=== PATIENT | female | born 1995 | race Caucasian/White ===

== ENCOUNTER 2017-01-06 21:12 | Emergency (ER) | payer OTHER ==
[2017-01-06] MEDS ORDERED: IOPAMIDOL 370 (76%) 100 ML VIAL IV ONE (21:13)
[2017-01-06] MEDS ORDERED: ONDANSETRON 4 MG/2ML 2 ML VIAL ONE (22:57)
[2017-01-06 23:20] LABS: ABSOLUTE NEUTROPHIL COUNT 1.9 K/mm3 (1.8-7.7); BASO # 0.1 K/mm3 (0.0-0.2); BASO % 0.7 % (0.2-1.0); EOS # 0.1 (0.0-0.5); EOS % 0.8 % (0.9-2.9); HEMATOCRIT 36.4 % (37.0-47.0); IMM NEUT% 0.5 % (0-1); LYMPH # 5.8 (1.0-4.8); LYMPH % 68.2 % (15-45); MEAN CELL VOLUME 90.5 fl (81.0-99.0); MEAN CORPUSCULAR HEMOGLOBIN 29.9 pg (27.0-31.0); MEAN PLATELET VOLUME 10.2 fl (7.4-10.4); MONO # 0.6 (0.0-0.8); MONO % 7.3 % (4-12); NEUT % 22.5 % (43-75); PLATELET COUNT 225 K/mm3 (130-400)
[2017-01-06 23:36] LABS: BLOOD UREA NITROGEN 9 mg/dL (7-25); BUN/CREATININE RATIO 13 (6-20); CALCIUM 9.7 mg/dL (8.6-10.3); LIPASE 14 U/L (11-82)
[2017-01-06 23:41] LABS: ALT/SGPT 156 U/L (7-52)
[2017-01-06 23:55] LABS: ATYPICAL LYMPHOCYTE 27 %; BAND 2 % (0-10); BASOPHIL 0 % (0-1); EOSINOPHIL 1 % (1-3); LYMPHOCYTE 42 % (15-45); MONOCYTE 8 % (4-12); NEUTROPHILS 20 % (43-75); TOTAL CELLS COUNTED 100
[2017-01-06 23:56] LABS: PLATELET ESTIMATE NORMAL (NORMAL)
[2017-01-07 00:54] LABS: SPECIFIC GRAVITY 1.015 (1.001-1.030); URINE BILIRUBIN NEGATIVE (NEGATIVE); URINE BLOOD NEGATIVE (NEGATIVE); URINE GLUCOSE (UA) NEGATIVE (NEGATIVE); URINE LEUKOCYTE ESTERASE NEGATIVE (NEGATIVE); URINE NITRITE NEGATIVE (NEGATIVE); URINE PROTEIN NEGATIVE (NEGATIVE); URINE UROBILINOGEN NORMAL (0-1 mg/dl)
[2017-01-07 00:55] LABS: URINE APPEARANCE HAZY; URINE COLOR YELLOW
[2017-01-07] MEDS ORDERED: OXYCODONE HCL 5 MG TABLET ONE (01:05)
--- NOTE | 2017-01-07 07:45 | CT ---
ABD/PELVIS W/ CON COMPARISON: None. HISTORY: Upper abdomen pain for 2 days. Recently diagnosed with mononucleosis. Technique: No oral contrast. Intravenous injection 100 mL Isovue 370. Using a [employer] Lumens Aquilion [address] scanner, images were obtained from the diaphragm to the floor the pelvis. An automated dose reduction technique was used to minimize patient radiation dose. Dose information: CTDIvol (mGy): 8.10 DLP(mGycm): 432.70 FINDINGS: Lung bases: Normal. Inferior mediastinum and heart: Normal. Liver: Normal. Gallbladder:Normal. Bile ducts: Normal. Pancreas: Normal. Spleen: Mild splenomegaly. Adrenal glands: Normal. Kidneys: Normal. Ureters: Normal Urinary bladder: Normal. Uterus and adnexa: Normal. Blood vessels: Normal Lymph nodes: Normal Stomach: Normal Duodenum: Normal Small intestine: Normal Appendix: Normal Colon: Normal Abdominal wall and supporting musculature: Normal Bones: Normal IMPRESSION: 1. Mild splenomegaly. Otherwise normal study. Preliminary report by [employer] radiologist Alphonse Chambers MD 01/07/2017 at 00:35
== END 2017-01-07 01:41 | disposition home or self-care (01) ==
LOC: ED 21:12
DX: R10.84 Generalized abdominal pain (principal); R11.0 Nausea
CPT/HCPCS: 83690; 84703; 85025; 80053; 81003; 74177; A9270; J2405; Q9967